=== PATIENT | female | born 1985 | race Caucasian/White ===

== ENCOUNTER 2024-01-20 22:01 | Emergency (ER) | payer MEDICAID, SELFPAY ==
[2024-01-20 22:01] VITALS: BP 152/91; PULSE 73; RESP 25; TEMP 36.8; O2SAT 99; BMI 45.6
--- NOTE | 2024-01-20 22:01 | ECG_ITS ---
APPROVED REPORT Exam: Resting ECG HR:71 bpm ECG Measurements Heart Rate 71 AXES ND 180 P 32 QRSd 101 QRS 9 QT 370 T 7 QTc 393 Conclusion SINUS RHYTHM NORMAL ECG Electronically signed by : TIMI ARIAS, 01/21/2024 07:19:40
--- NOTE | 2024-01-20 22:04 | CT_ITS ---
PROCEDURE INFORMATION: Exam: CT Head Without Contrast Exam date and time: 01/20/2024 10:35 PM Age: 38 years old Clinical indication: Stroke-like symptoms; Altered mental status/memory loss; Additional info: Possible stroke TECHNIQUE: Imaging protocol: Computed tomography of the head without contrast. Radiation optimization: All CT scans at this facility use at least one of these dose optimization techniques: automated exposure control; mA and/or kV adjustment per patient size (includes targeted exams where dose is matched to clinical indication); or iterative reconstruction. Other technique: STROKE PROTOCOL was implemented. COMPARISON: No relevant prior studies available. FINDINGS: Brain: No evidence of mass effect or midline shift. No focal areas of abnormal attenuation. The eller/white matter interfaces are preserved. The basal cisterns are patent. Cerebral ventricles: No ventriculomegaly. Paranasal sinuses: Visualized sinuses are unremarkable. No fluid levels. Mastoid air cells: Visualized mastoid air cells are well aerated. Bones: Unremarkable. No acute fracture. Soft tissues: Unremarkable. IMPRESSION: No CT evidence of intracranial hemorrhage, mass effect, midline shift or hydrocephalus. No acute, discernible, transcortical territorial infarction identified. ASSESSMENT: ASPECTS ([place] Stroke Program Early CT Score) is 10.
--- NOTE | 2024-01-20 22:04 | CT_ITS ---
PROCEDURE INFORMATION: Exam: CTA Head With Contrast, Arteriography Exam date and time: 01/20/2024 10:37 PM Age: 38 years old Clinical indication: Stroke-like symptoms; Altered mental status/memory loss; Additional info: Possible stroke TECHNIQUE: Imaging protocol: Computed tomographic angiography of the head with contrast. Exam focused on the arteries. 3D rendering (Not supervised by radiologist): MIP and/or 3D reconstructed images were created by the technologist. Radiation optimization: All CT scans at this facility use at least one of these dose optimization techniques: automated exposure control; mA and/or kV adjustment per patient size (includes targeted exams where dose is matched to clinical indication); or iterative reconstruction. Contrast material: ISOUVE 370; Contrast volume: 100 ml; Contrast route: INTRAVENOUS (IV); COMPARISON: CT HEAD/BRAIN WO CON 01/20/2024 10:35 PM FINDINGS: ANTERIOR CIRCULATION: Right internal carotid artery: Intracranial segment is patent with no significant stenosis. No aneurysm. Right middle cerebral artery: No occlusion or significant stenosis. No aneurysm. Right anterior cerebral artery: No occlusion or significant stenosis. No aneurysm. Left internal carotid artery: Intracranial segment is patent with no significant stenosis. No aneurysm. Left middle cerebral artery: No occlusion or significant stenosis. No aneurysm. Left anterior cerebral artery: No occlusion or significant stenosis. No aneurysm. POSTERIOR CIRCULATION: Right vertebral artery: No occlusion or significant stenosis. No aneurysm. Left vertebral artery: No occlusion or significant stenosis. No aneurysm. Basilar artery: No occlusion or significant stenosis. No aneurysm. Right posterior cerebral artery: No occlusion or significant stenosis. No aneurysm. Left posterior cerebral artery: No occlusion or significant stenosis. No aneurysm. Brain: No definite mass, mass effect, or midline shift. Hypodense streak artifacts obscure evaluation. Cerebral ventricles: No ventriculomegaly. Bones/joints: Unremarkable. No acute fracture. Soft tissues: Unremarkable. IMPRESSION: No large vessel stenosis or occlusion.
--- NOTE | 2024-01-20 22:04 | CT_ITS ---
PROCEDURE INFORMATION: Exam: CTA Neck With Contrast Exam date and time: 01/20/2024 10:37 PM Age: 38 years old Clinical indication: Stroke-like symptoms; Altered mental status/memory loss; Additional info: Possible stroke TECHNIQUE: Imaging protocol: Computed tomographic angiography of the neck with contrast. Exam focused on the cervical segments of the vasculature. 3D rendering (Not supervised by radiologist): MIP and/or 3D reconstructed images were created by the technologist. Radiation optimization: All CT scans at this facility use at least one of these dose optimization techniques: automated exposure control; mA and/or kV adjustment per patient size (includes targeted exams where dose is matched to clinical indication); or iterative reconstruction. Contrast material: ISOUVE 370; Contrast volume: 100 ml; Contrast route: INTRAVENOUS (IV); COMPARISON: CT ANGIO HEAD 01/20/2024 10:37 PM FINDINGS: Right common carotid artery: No stenosis. No dissection or occlusion. Right internal carotid artery: No significant stenosis. No dissection or occlusion. Right external carotid artery: No occlusion or stenosis of the origin. Left common carotid artery: No stenosis. No dissection or occlusion. Left internal carotid artery: No significant stenosis. No dissection or occlusion. Left external carotid artery: No occlusion or stenosis of the origin. Right vertebral artery: No stenosis. No dissection or occlusion. Left vertebral artery: No stenosis. No dissection or occlusion. Soft tissues: Normal. No significant soft tissue swelling. Bones/joints: No acute fracture. IMPRESSION: Unremarkable examination with no significant stenosis, dissection, or occlusion. REFERENCES: NASCET CRITERIA. The degree of stenosis in the cervical segment of the internal carotid artery is based on NASCET criteria. Normal is no stenosis. Mild is less than 50% stenosis. Moderate is 50-69% stenosis. Severe is 70% to 99% stenosis. Total occlusion is no detectable patent lumen.
--- NOTE | 2024-01-20 22:05 | [facility].EDGENADL ---
Discharge Plan Disposition Patient Disposition: Home, Self-Care Prescriptions Prescriptions: New levetiracetam [Keppra] 1,000 mg tablet 1,000 mg PO BID 14 Days Qty: 60 3RF Referrals Follow up/Referrals: Sharon Doe MD [Staff Physician] - See instructions Activity Restrictions/Add. Instructions Additional Instructions/Restrictions: Follow-up with Dr. Doe, information listed here. You may need a formal referral from your family doctor, if that is the case, call them and ask for them to place formal referral. Call your family doctor to establish care for this visit to the emergency department and schedule follow-up within 48 hours to ensure improvement. If you have any worsening of your condition or any other concerning signs or symptoms, return to the emergency department or your primary care doctor for further evaluation. 1000 mg Keppra twice daily until follow-up. Seizure precautions - do not do any of these activities until cleared by your neurologist: 1) avoid sleep deprivation 2) avoid open bodies of water and open flames 3) avoid swimming alone 4) take showers, do not take baths 5) avoid any situation where loss of consciousness may predispose to injury or 6) avoid driving Clinical Impressions Clinical Impression: Syncopal episodes Instructions Patient Instructions: DI for Syncope in Adults (Fainting), DI for Syncope in Children (Fainting) Discharge ED Provider: Jeb Faust General Adult HPI General Chief complaint: Weakness Stated complaint: Syncope Time Seen by Provider: 01/20/24 22:04 History of Present Illness HPI narrative: Please note that above description of symptoms, in this electronic medical record under categorization of recalled from ER triage doctor by RN are reflective of an initial nursing assessment, however, is not reflective of my full history and physical exam that was personally taken and clarified. Consequentially, this preceding description of symptoms, which may include the patient's categorized chief complaint in the EMR, do not reflect my personal clinical impression, and the ultimate description of history of present illness and patient stated complaints should be deferred to this section of the note. Unless stated otherwise or congruent with this section of the note, additional signs, symptoms, or incongruence should be interpreted as inaccurate with my clinical impression. Related Data Previous Rx's Medication Instructions Recorded levetiracetam 1,000 mg tablet 1,000 mg PO BID 2 weeks #60 tabs 01/21/24 (Keppra) Allergies Allergy/AdvReac Type Severity Reaction Status Date / Time No Known Allergies Allergy Verified 01/20/24 22:51 [facility] Disclaimer: The information contained in this section may have been updated after the patient was seen, as this information can be updated by other users. Social History Smoking Status: Never smoker alcohol intake: never current occupational status: employed Travel in the last 8 weeks: None ROS Obtained: Yes All systems reviewed & no additional complaints except as documented Physical Exam General General appearance: alert and in no apparent distress Head Head exam: atraumatic and normocephalic Eye Eye exam: Present normal appearance, PERRL and EOMI ENT ENT exam: Present mucous membranes moist Neck Neck exam: Present normal inspection, full ROM and trachea midline Respiratory Respiratory exam: Absent respiratory distress, wheezes, stridor, accessory muscle use or prolonged expiratory phase Cardiovascular Cardiovascular exam: Present normal rhythm Abdominal Exam Abdominal exam: Present soft; Absent distention, tenderness, guarding, rebound or rigidity Extremities Exam Extremities exam: Absent edema Neurological Exam Neurological exam: Present alert, oriented X3, CN II-XII intact and normal gait; Absent motor sensory deficit Skin Skin exam: Present warm and dry; Absent diaphoresis or erythema Medical Decision Making Medical Records Medical records reviewed: Yes I reviewed the patient's medical records. Matias Inquiry Pt receiving controlled substance: No Matias was queried for this patient: No Vital Signs: 01/20/24 22:01 01/20/24 22:45 01/20/24 23:00 Temperature 98.3 F Temperature Source Oral Pulse Rate 82 73 Pulse Rate [Right] 73 Respiratory Rate 25 H 12 12 Blood Pressure 162/87 H Blood Pressure [Right Arm] 152/91 H Blood Pressure Mean [Right Arm] 111 Blood Pressure Source [Right Arm] Automatic Cuff Blood Pressure Position [Right Arm] Sitting 02 Sat by Pulse Oximetry 99 97 99 Oxygen Delivery Method Room Air Room Air Room Air 01/20/24 23:30 Temperature Temperature Source Pulse Rate 79 Pulse Rate [Right] Respiratory Rate 20 Blood Pressure 123/78 Blood Pressure [Right Arm] Blood Pressure Mean [Right Arm] Blood Pressure Source [Right Arm] Blood Pressure Position [Right Arm] 02 Sat by Pulse Oximetry 95 Oxygen Delivery Method Room Air Lab Data Lab Results 01/20/24 22:00: WBC 9.0, RBC 4.52, Hgb 14.8, Hct 43.8, MCV 96.9, MCH 32.7 H, MCHC 33.7, RDW 13.0, Plt Count 323, MPV 8.4, Neut % (Auto) 54.3, Lymph % (Auto) 35.2, [place] % (Auto) 7.9, Eos % (Auto) 1.5, Baso % (Auto) 1.3, Neut # (Auto) 4.9, Lymph # (Auto) 3.2, [place] # (Auto) 0.7, Eos # (Auto) 0.1, Baso # (Auto) 0.1, PT 10.9, INR 1.01, APTT 27.6, Sodium 143, Potassium 3.9, Chloride 105, Carbon Dioxide 32 H, Anion Gap 9.9, BUN 14, Creatinine 0.90, Estimated Creat Clear 84, Estimated GFR 69, Est GFR ( Amer) 84, Glucose 90, Calcium 10.3 H, Total Bilirubin 0.7, AST 38 H, ALT 45, Alkaline Phosphatase 88, Troponin I < 0.01, Total Protein 8.1, Albumin 4.3, Globulin 3.8 H, Albumin/Globulin Ratio 1.1, Triglycerides 144, Cholesterol 179, LDL Cholesterol Direct 109.42, VLDL Cholesterol 29, HDL Cholesterol 30 L, Cholesterol/HDL Ratio 6.0 H 01/20/24 22:00 01/20/24 22:00 Orders (Tests/Meds): ED MEDICATIONS Generic Name Dose Route Start Last Admin Trade Name Freq PRN Reason Stop Dose Admin Sodium Chloride 10 ml 01/20/24 22:04 Sodium Chloride 0.9% 10ml Flush Syringe IV 02/19/24 22:03 NEEDED PRN Maintain IV Site Sodium Chloride 10 ml 01/20/24 22:49 01/20/24 23:05 Sodium Chloride 0.9% 10ml Syr (Rad Only) IV 02/19/24 22:48 10 ml NEEDED PRN Administration Maintain IV Site Discontinued Medications Generic Name Dose Route Start Last Admin Trade Name Freq PRN Reason Stop Dose Admin Iopamidol 100 ml 01/20/24 22:49 01/20/24 23:05 Iopamidol-370 (76%);100ml Bottle IV 01/20/24 22:50 100 ml ONCE ONE Administration Sodium Chloride 50 ml 01/20/24 22:49 01/20/24 23:05 0.9 % Sodium Chloride 50 Ml Vial IV 01/20/24 22:50 50 ml ONCE ONE Administration ORDERS Category Date Time Status CT angio head Stat Cat Scan 01/20/24 22:[address] angio neck Stat Cat Scan 01/20/24 22:[address] head/brain wo con Stat Cat Scan 01/20/24 22:04 Taken Activated Partial Thrombo Time Stat Lab 01/20/24 22:00 Completed Complete Blood Count Auto Diff Stat Lab 01/20/24 22:00 Completed Comprehensive Metabolic Panel Stat Lab 01/20/24 22:00 Completed Lipid Panel Stat Lab 01/20/24 22:00 Completed Prothrombin Time INR Stat Lab 01/20/24 22:00 Completed Troponin I Q3H Lab 01/21/24 01:15 Ordered Troponin I Q3H Lab 01/21/24 04:15 Ordered Troponin I Stat Lab 01/20/24 22:00 Completed Medical Decision Narrative: Is a 38-year-old female with history of idiopathic syncopal episodes presenting with syncopal episode. Patient has been worked up with cardiology and neurology regarding these episodes. Neither has been fruitful. Patient states that about an hour prior to arrival, she was feeding her goats. Woke up on the ground. States she had no preceding symptoms came to the emergency department via private vehicle because she states that she has been having difficulty speaking. This is new. No other complaints. History was obtained via conversation with patient. On arrival, patient hemodynamically stable, alert, oriented x4, appropriate, GCS 15, moving all extremities spontaneously, pupils equal and reactive to light. Full physical exam performed and significant for NIHSS 2 for dysarthria and drift in right lower extremity neurologically intact otherwise. Cardiovascular exam within normal limits. Pulses are equal and symmetric. Lungs are clear to auscultation bilaterally. Normotensive, nontachycardic and saturating appropriately on room air Patient was given full dose aspirin for symptomatic management and correction of underlying abnormalities. Workup independently interpreted and significant for nonactionable hematologic workup. CT head and CTA head and neck without acute intracranial abnormality. See radiology read for full review of final results. Independent interpretation of EKG shows sinus rhythm 71 beats a minute no ST or T wave changes concerning for acute ischemia. NV, QRS, QT intervals normal. On reevaluation, patient's speech and deficits are improved. I feel this is most likely indicative of focal seizures given recurrence of similar symptoms in the past with numerous workups including MRI, cardiac evaluation, CTs, etc. with negative findings. Patient to be placed on 1000 mg Keppra twice daily and given follow-up with neurology for further outpatient evaluation with EEG. Patient is agreeable this plan. Because patient at baseline without signs or symptoms of clinical decompensation, deemed appropriate for discharge. Results were relayed to patient who voiced understanding and were agreeable to outpatient management and follow up. I discussed my clinical impression with patient and answered all questions. At this time, the evidence for any other entities in the differential is insufficient to warrant any further testing or ED observation. This was explained as well. Advisory was given that persistent or worsening symptoms require further evaluation. I confirmed the understanding of this discussion. Critical Care Critical Care Time Critical Care Time: Yes (Neuro) Attestation: On 01/20/24, the high probability of a clinically significant, sudden or life threatening deterioration of the following system(s) required my full and direct attention, intervention and personal management. The time I documented below is in addition to time spent performing reported procedures but includes the following listed in this critical care notation. Total Time Total Critical Care Time: 45
[2024-01-20 22:11] LABS: Basophils # 0.1 K/mm3 (0-0.2); Basophils % 1.3 % (0.1-2.0); Eosinophils # 0.1 K/mm3 (0.0-0.4); Eosinophils % 1.5 % (0.1-12.0); Hematocrit 43.8 % (37.0-47.0); Hemoglobin 14.8 g/dL (12.2-16.2); Lymphocytes # 3.2 K/mm3 (0.7-4.5); Lymphocytes % 35.2 % (10-50); Mean Corpuscular HGB Conc 33.7 g/dL (31.8-35.4); Mean Corpuscular Hemoglobin 32.7 pg (27.0-31.2); Mean Corpuscular Volume 96.9 fl (81-99); Mean Platelet Volume 8.4 fl (7.4-10.4); Monocytes # 0.7 K/mm3 (0.1-1.0); Monocytes % 7.9 % (1.7-9.3); Neutrophils # 4.9 K/mm3 (1.8-7.8); Neutrophils % 54.3 % (37.0-80.0); Platelet Count 323 K/mm3 (142-424); Red Blood Count 4.52 M/mm3 (4.20-5.40)
[2024-01-20 22:13] LABS: Chloride 105 mmol/L (98-107); Sodium 143 mmol/L (136-145)
[2024-01-20 22:14] LABS: Potassium 3.9 mmoL/L (3.5-5.1)
[2024-01-20 22:16] LABS: Alanine Aminotransferase 45 U/L (12-78); Albumin Level 4.3 g/dl (3.5-5.0); Albumin/Globulin Ratio 1.1 (1.1-1.8); Alkaline Phosphatase 88 U/L (38-126); Anion Gap 9.9 mEq/L (5-15); Aspartate Amino Transferase 38 U/L (14-36); Bilirubin,Total 0.7 mg/dl (0.2-1.3); Blood Urea Nitrogen 14 mg/dl (7-17); Carbon Dioxide 32 mmol/L (22.0-30.0); Creatinine Clearance Estimated 84 mL/min (50-200); Estimated Glomerular Filt Rate 69 ml/min (>60); GFR (African American) 84 ML/MIN (>60); Globulin 3.8 g/dL (1.3-3.2); Total Protein,Serum 8.1 g/dl (6.3-8.2)
[2024-01-20 22:17] LABS: Calcium 10.3 mg/dl (8.4-10.2); Cholesterol 179 mg/dl (140-200); Glucose 90 mg/dl (74-100); HDL Cholesterol 30 mg/dl (40-60); Triglycerides 144 mg/dl (30-150); VLDL Cholesterol 29 mg/dL (0-40)
[2024-01-20 22:18] LABS: Activated Partial Thrombo Time 27.6 seconds (22.8-30.6); INR 1.01 (0.9-1.1); Prothrombin Time 10.9 seconds (10.1-12.5)
[2024-01-20 22:28] LABS: Direct LDL Cholesterol 109.42 mg/dL (100-129)
[2024-01-20 22:32] LABS: Troponin I < 0.01 ng/ml (0.00-0.034)
[2024-01-20 22:45] VITALS: PULSE 82; RESP 12; O2SAT 97
[2024-01-20 23:00] VITALS: BP 162/87; PULSE 73; RESP 12; O2SAT 99
[2024-01-20] MEDS: SODIUM CHLORIDE 0.9% 10ML SYR (RAD ONLY) 10 ML IV (23:05)
[2024-01-20] MEDS: 0.9 % SODIUM CHLORIDE 50 ML VIAL IV (23:05)
[2024-01-20] MEDS: IOPAMIDOL-370 (76%);100ML BOTTLE 100 ML IV (23:05)
[2024-01-20 23:30] VITALS: BP 123/78; PULSE 79; RESP 20; O2SAT 95
[2024-01-21 00:37] VITALS: BP 149/74; PULSE 77; RESP 18; TEMP 36.6; O2SAT 97
== END 2024-01-21 01:05 | disposition home or self-care (01) ==
PROVIDERS: Emergency Provider Emergency Medicine; PCP Pediatrics
DX: R55 Syncope and collapse (principal)
CPT/HCPCS: 70450; 70496; 70498; 80053; 80061; 84484; 85025; 85610; 85730; 93005; 99285; Q9967